=== PATIENT | female | born 1955 ===

== ENCOUNTER 2021-02-08 06:00 | Day surgery (SDC) | payer OTHER ==
[~2021-02-08 06:00] MED LIST: AMBIEN10 MG PO; DITROPAN XL10 MG PO; HORIZANT300 MG PO; LIPITOR40 M1 PO; VASOTEC10 MG PO; XAR PO
== END 2021-02-08 11:40 | disposition home or self-care (01) ==
LOC: AMB-ENDOS 06:00
PROVIDERS: ATTEND Surgery
DX: C19 Malignant neoplasm of rectosigmoid junction (principal); Z20.822 Contact with and (suspected) exposure to COVID-19

== ENCOUNTER 2021-02-12 05:55 | Day surgery (SDC) | payer OTHER ==
[~2021-02-12] VITALS: Ht 152.4 cm; Wt 72.1 kg
[2021-02-12] MEDS ORDERED: PERCOCET 5-3251 EACH PO (09:01)
== END 2021-02-12 16:37 | disposition home or self-care (01) ==
LOC: CIR.AMB 05:55 → SURH 05:55 → O/R 05:55 → SURH 07:00 → EDSTATUS 08:45 → CIR.AMB 16:37 → O/R 16:37
PROVIDERS: ATTEND Surgery
DX: C18.7 Malignant neoplasm of sigmoid colon (principal)